=== PATIENT | female | born 1955 | race Caucasian/White ===

== ENCOUNTER 2025-06-23 22:10 | Observation (INO) | payer OTHER, SELFPAY ==
[2025-06-23] VITALS (7 sets, daily range): BP systolic 168–215; BP diastolic 86–133; BMI 25.1
[2025-06-23] MEDS: LOPRESSOR 25 MG PO (17:46)
[2025-06-23] MEDS: ROXICODONE 5 MG PO (17:46)
--- NOTE | 2025-06-23 17:57 | ED.GENMED ---
History of Present Illness
General
Chief Complaint: Blood Pressure Problem
Source: patient
Exam Limitations: none
Time Seen by Provider: 06/23/25 17:02
Nursing documentation reviewed up to this point in time: agreed with
History of Present Illness
History of Present Illness:
70-year-old female sent from the outpatient center today she was have a total hip replacement Dr. Doran blood pressure is elevated surgery was canceled she has pain in her hip no chest pain no shortness of breath no fever or chills, no headache no
history of hypertension followed at the [facility]
Past History
Past History
ED Past Medical History: Other (Osteoarthritis); Negative HTN
Social History
Tobacco: Former smoker
Alcohol: None
Drug: None
Personal:
Living: with family
Phy Exam
Physical Exam
Physical Exam:
Physical Exam
General: no apparent distress, not acutely ill
Neck: No jaundice
Heart: Regular
Lungs: no acute respiratory distress. clear bilaterally
Abdomen: Not tender
Neuro: alert and oriented. no focal neurological deficits
Skin: no rash
Psychiatric: well kept. interactive and cooperative
Extremities: Mild pain with range of motion of the right
Course
Orders/Labs/Results
Orders:
Orders
06/23/25 15:19
EKG [Electrocardiogram (*1)] Urgent
Reason for Study: Hypertension, Benign
06/23/25 15:20
EKG- Treatment ONCE
06/23/25 17:27
Metoprolol [Lopressor] 25 mg PO NOW STA
Oxycodone [Roxicodone] 5 mg PO NOW STA
06/23/25 17:43
Basic Metabolic Panel Urgent
Complete Blood Count/With Diff Urgent
06/23/25 19:13
HydrALAZINE [Apresoline] 10 mg IV NOW STA
06/23/25 20:18
Troponin I Urgent
Diazepam [Valium] 5 mg PO NOW STA
Abnormal Lab Results
06/23/25
17:43
MCH 26.8 L pg
(27.0-31.0)
MCHC 31.7 L g/dL
(33.0-37.0)
Sodium 133 L mmol/L
(135-145)
Carbon Dioxide 31 H mmol/L
(22-30)
BUN 18 H mg/dl
(7-17)
Glucose 101 H mg/dl
(70-99)
Calcium 10.4 H mg/dl
(8.4-10.2)
06/23/25 17:43
06/23/25 17:43
Vital Signs
Initial and Last Documented VS:
Initial Vital Signs
Temp Pulse Resp BP Pulse Ox
98.0 F 89 18 212/133 98
06/23/25 15:15 06/23/25 15:15 06/23/25 15:15 06/23/25 15:15 06/23/25 15:15
Last Documented Vital Signs
Temp Pulse Resp BP Pulse Ox
98.0 F 88 20 205/90 99
06/23/25 15:15 06/23/25 19:59 06/23/25 19:59 06/23/25 19:59 06/23/25 19:59
MDM/Problems Addressed
Differential Diagnosis Includes:
Essential hypertension hypertensive urgency hypertension related to pain
MDM/Problems Addressed:
No signs of endorgan
Chronic conditions affecting care:
No history of hypertension has
*Pulse Oximetry
SaO2: 99
Oxygen Mode of Delivery: Room air
Patient hypoxic: no
*EKG
Interpreted by ED Provider?: Yes
Interpretation: normal
Comparison EKG: no comparison EKG present
Heart Rate: 78
Rate: normal
Rhythm: sinus
Ischemia: non-specific ST changes
*[employer] Interpretation
Rate: normal
Interpretation: normal
Heart Rate: 78
Rhythm: sinus
*Critical Care Note
Total Time (30-74mins, 75-104mins- exclusive of procedures): Not Applicable
Update Note
Update Note:
Update will check labs, treat her pain started on beta-george messages sent to family practice attendings, and orthopedist will try to facilitate outpatient follow-up in the office
8:20 PM patient reevaluated now she states she feels worse she has pain in her back shortness of breath pressure in her chest numbness in her arms numbness in her feet blood pressure is 180/80
ED Attending Note
-
Portions of this chart may have been created with voice recognition software.� Occasional wrong word or��sound alike� substitutions may have occurred due to the inherent limitations of voice recognition software.
Discharge Plan
Departure
Patient Disposition: Admit
Date of Disposition: 06/23/25
Time of Disposition: 20:00
Admit to: Telemetry
Presentation/result/management discussed w/ accepting MD/DO: Hospitalist
Patient with high blood pressure during this ER visit?: Yes
Condition: Good
Discharge Problem:
HBP (high blood pressure), Hypertensive urgency
Instructions: Osteoarthritis, BLOOD PRESSURE
Prescriptions:
New
oxycodone-acetaminophen [Percocet] 5-325 mg tablet
1 tab PO Q6HPRN PRN (Reason: pain) Qty: 14 0RF
metoprolol tartrate 25 mg tablet
25 mg PO BID Qty: 20 0RF
Referrals:
Keron Rico MD, Resident [Family Provider, General] - Next open appointment
Activity Restrictions/Additional Instructions:
Follow-up with your primary care provider, and with Dr. Doran your orthopedist
Interventions
Interventions:
*Risk Screen - Suicide Last Done: 06/23/25 15:15
*General Assessment Last Done: 06/23/25 15:15
*Neglect/Abuse Screening Last Done: 06/23/25 15:15
*ED COVID-19 Vaccine History Last Done: 06/23/25 15:15
*ED Influenza Vaccine History Last Done: 06/23/25 15:15
ED- Cardiac Assessment Last Done: 06/23/25 17:18
ED- Neurological Assessment Last Done: 06/23/25 17:18
ED- Pulmonary Assessment Last Done: 06/23/25 17:18
Discharge Date and Time
Print Language: GERMAN
[2025-06-23 17:58] LABS: Hematocrit 39.1 % (37.0-47.0); Hemoglobin 12.4 g/dL (12.0-16.0); Mean Corp Hgb Conc. 31.7 g/dL (33.0-37.0); Mean Corpuscular Volume 84.6 fL (81.0-99.0); Nucleated Red Blood Cells % 0 %; Platelet Count 371 10^3/uL (130-400); Red Cell Dist. Width 14.3 % (11.5-14.5)
[2025-06-23 18:17] LABS: Blood Urea Nitrogen 18 mg/dl (7-17); Calcium 10.4 mg/dl (8.4-10.2); Carbon Dioxide 31 mmol/L (22-30); Chloride 101 mmol/L (98-107); Glucose 101 mg/dl (70-99); Sodium 133 mmol/L (135-145); eGFR > 60.00
[2025-06-23] MEDS: APRESOLINE 10 MG IV (19:24)
[2025-06-23] MEDS: VALIUM 5 MG PO (20:32)
--- NOTE | 2025-06-23 20:37 | HPS.HSE ---
Family Physician
-
Family Physician: Keron Rico MD, Resident
Chief Complaint
-
hypertension
History of Present Illness
Patient is a 70-year-old female with no significant past medical history who presented to [facility] ED for evaluation of elevated blood pressure. Patient states that she presented this morning for scheduled right hip replacement, when she was found to be
hypertensive. Surgeon canceled surgery and refered patient to ED for evaluation. She complains of bilateral feet feeling tingling. She denies any headaches, blurry vision, dizziness, chest pain or shortness of breath.
Medical History
Past Medical History
Past Medical History: Reports Other
Additional Past Medical History:
osteoarthritis
Past Surgical History: Reports None
Social History
Tobacco: Former Smoker (quit summer 2024)
Alcohol: Occasional
Drug: None
Living: Alone
Employment: Retired
Family History
Family History: Not pertinent
Allergies / Home Medications
Allergies reflects when Allergies were last updated in [facility].
Home Medications with original date entered in [facility]
Allergy/Medication List:
Allergies
Allergy/AdvReac Type Severity Reaction Status Date / Time
cantaloupe Allergy Unknown Verified 06/23/25 15:20
Home Medications
No Meds [No Current Medications] 06/23/25
Review of Systems
-
History Source: Patient
Constitutional: Denies Fever or Chills
EENT: Denies Sore Throat
Respiratory: Denies Cough, Hemoptysis or Trouble Breathing
Cardiac: Denies Chest Pain, Diaphoresis, Palpitations or Syncope
Abdomen/GI: Denies Abdominal Pain, Nausea, Vomiting or Diarrhea
: Denies Dysuria, Frequency or Urgency
Musculoskeletal: Reports Joint Pain (right hip pain )
Skin: Denies Rash
Neurological: Denies Dizzy, Headache, Weakness or Numbness
Endocrine: Denies Polyuria or Polydipsia
Physical Exam
Vital Signs
Vital Signs
Temp Pulse Resp BP Pulse Ox
98.0 F 88 20 205/90 99
06/23/25 15:15 06/23/25 19:59 06/23/25 19:59 06/23/25 19:59 06/23/25 19:59
Physical Exam
General: Well Developed, Well Nourished, No Apparent Distress, Comfortable and Conversant
HEENT: NormoCephalic, Moist mucous membranes, PERRLA, Nose Appears Normal and Ears Appear Normal
Respiratory: Clear and Non Labored Respirations
Cardiac: S1/S2 and Regular Rhythm; No Murmur
GI: Soft, Non Tender, Non Distended and Normal Bowel Sounds
Musculoskeletal: No Clubbing, No Cyanosis and No Edema
Skin: Warm and IV/Catheter Site; No Rash
Neuro: Awake and AO x 3
Hematologic/Lymphatic: No Lymphadenopathy
Psych: Calm and Intact Judgment/Insight
Laboratory Results
-
06/23/25 17:43
06/23/25 17:43
Laboratory Results
Total Bilirubin Cancelled 06/23/25 17:43
AST Cancelled 06/23/25 17:43
ALT Cancelled 06/23/25 17:43
Alkaline Phosphatase Cancelled 06/23/25 17:43
Data Reviewed
-
Medical Tests (Nuc Med, Echo, EKG etc): Report Reviewed by me (EKG: NORMAL SINUS RHYTHM)
Lab Data: Labs Reviewed by me
Impression/Plan
-
IMPRESSION/PLAN:
#hypertensive urgency
EKG: NORMAL SINUS RHYTHM
- Admit to med/surg
- start lisinopril 5mg daily
#osteoarthritis
pending right hip replacement
- pain regimen with PRN Oxycodone
Code status: DNR
DVT prophylaxis: Lovenox sq
--- NOTE | 2025-06-23 20:51 | W.PN.UPDATE ---
Update Note
Progress Note Update
Patient seen in conjunction with nurse practitioner. I agree with the history and the assessment and plan.
Briefly, this is a 70-year-old with past medical history of end-stage osteoarthritis needing total hip replacement will was sent to the emergency department from clinic for elevated blood pressure.
Patient was seen at clinic today for a planned total hip replacement blood when he measured a blood pressure which was much elevated. She denied having any chest pain or shortness of breath. She denied any nausea vomiting or diaphoresis. She
denies any headache. Denies any vision changes. Denies any numbness or tingling. She denies any lower extremity swelling.
Previously she has been found to have elevated blood pressures at clinic but is not currently on any medications. She reports that she has a dry mouth and at no p.o. intake all day. Generalized reports chronic hip pain for which she takes aspirin
and Tylenol regularly. While in the emergency department she was given pain control and Valium with development of slight drowsiness and head fullness. Blood pressure did improved to 160 systolic after IV hydralazine and metoprolol
On arrival in the emergency department the blood pressure was 205/90 systolic with a pulse of 88 and she was satting 99% on room air. ECG shows a normal sinus rhythm at rate of [address] or T wave changes. No LVH. Troponin is pending.
CBC is unremarkable. Electrolytes notable for a sodium of 133, potassium is pending, and bicarb is 31 BUN and creatinine normal and glucose was 107.
Assessment and plan
Uncontrolled blood pressure without findings of endorgan damage show focal neurological symptoms. Patient is without any chest pain or shortness of breath. She has no headache. No prior treatment for uncontrolled hypertension.
- Admit to telemetry observation
- No history of diabetes, normal renal function.
- As need hydralazine for SBP greater than 180
- start low dose lisinopril in am
End-stage osteoarthritis of the hip
- Pain management with Tylenol, as needed oxycodone which has helped tremendously
- Muscle relaxants as needed
DVT prophylaxis�SCDs
CODE STATUS�full code
[2025-06-23 21:14] LABS: Troponin I < 0.012 ng/ml
[2025-06-24] MEDS: ROXICODONE 5 MG PO ×2 (00:36→07:20)
--- NOTE | 2025-06-24 06:20 | PTCARENOTE ---
06/23 @ 2230- pt received via stretcher from ED; Medsurg order. Afebrile, HR 81, BP 175/93, pox 98% room air. No c/o pain. AAOx3, steady on feet. PMH reviewed by this RN and patient. Plan of care discussed. Call [facility] within reach.
[2025-06-24 07:19] VITALS: BP 184/96
[2025-06-24] MEDS: ZESTRIL 5 MG PO (07:20)
[2025-06-24 10:57] VITALS: BP 159/80
[2025-06-24 12:05] LABS: Blood Urea Nitrogen 17 mg/dl (7-17); Calcium 9.9 mg/dl (8.4-10.2); Carbon Dioxide 26 mmol/L (22-30); Chloride 98 mmol/L (98-107); Estimated Creatinine Clearance 46 ml/min; Glucose 108 mg/dl (70-99); Potassium 4.1 mmol/L (3.5-5.1); Sodium 131 mmol/L (135-145); eGFR > 60.00
[2025-06-24 14:23] VITALS: BP 179/97
--- NOTE | 2025-06-24 14:46 | CM ---
IA completed. JUNE provided and placed on chart. Independent in ADLs and IADLs. Pt lives alone in a 2 story house but only uses the 1st floor. Has 1 step at the entrance to the home.DME: Rolling walker which she uses, [facility] jignesh not in use.No hx of HH,
O2, SNF. No insecurities identified. Confirmed PXP, Rx, insurance an drug coverage.
PCP: Keron Rico
RX: [facility]
Plan: Discharged to home with no needs. [id number] will drive patient home.
--- NOTE | 2025-06-24 16:25 | W.PN.HOSP.TC ---
Addendum entered and electronically signed by Tyrone Ellison MD 06/24/25 21:14:
Attending Addendum:
I saw and evaluated the patient. I reviewed the resident�s note and agree with findings and plan as documented in the resident�s note. Sub: Feels nauseous after oxycodone. Landing dizzy last pm when BP dropped. Currently feels pain in RLE chronic. Full
12 point ROS reviewed and negative except as documented Exam: Vitals reviewed in chart GEN-NAD heart RRR lungs clear abd soft LE no edema
Plan:
#Hypertensive urgency
- EKG: personally reviewed NORMAL SINUS RHYTHM
- cont lisinopril 5mg daily
- resolved need OP follow UP
- ECHO as OP
# Severe Right Hip Osteoarthritis
- pending elective right hip replacement
- pain regimen with PRN Oxycodone
# Hyponatremia
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
- repeat BMP in one week
Dispo DC HOME
Time spent coordinating care, DC planning, review of DC plan of care with resident, transition of care, review of records, med rec/scripts sent electronically, consults, notes, d/w consultants, nursing, PCP updated, and CM� 31 mins >50% of this time
was devoted to counseling and coordination of care
Original Note:
Today's Communication/Plan
-
Patients hypertensive urgency was treated here at the hospital
Patients lab work was came back trending in the right direction
Patient will be given a referral to follow up at the wellness clinic
Her medication is reviewed and ordered.
Daughter in law will drive patient home. `
Patient will be discharged today.
Assessment / Plan
Assessment / Plan
#Hypertensive Urgency
Patient was prescribed Furosemide 20 mg PO BID was ordered for the patient as a home medication.
#End stage osteoarthritis of the hip
Pain management with one week prescription for Oxycodone 5 mg.
Anticipated Discharge: Today
Subjective/Interval History
-
Date of Service: June 24, 2025
Overnight Events: Patient states that they are doing well. She denies any fever or chills, but does say shes currently feeling very nauseous and wants to vomit. Patient blames her nauseousness on on taking her newly dose lisinopril but she also took
an oxycodone medication around that same time.
Objective Data
-
Labs:
Laboratory Results
06/24/25
11:29
Sodium 131 L
Potassium 4.1
Chloride 98
Carbon Dioxide 26
BUN 17
Creatinine 0.8
Glucose 108 H
Calcium 9.9
Vital Signs:
Vital Signs
Temp Pulse Resp BP Pulse Ox
97.6 F 99 16 179/97 98
06/24/25 14:23 06/24/25 14:23 06/24/25 14:23 06/24/25 14:23 06/24/25 14:23
I&O
06/23/25 06/24/25 06/25/25
06:59 06:59 06:59
Intake Total 0 / 0
Balance 0 / 0
Review of Systems
-
History Source: Patient
All other systems: Reviewed and negative
Abdomen/GI: Reports Nausea and Vomiting
Physical Exam
-
General: Well Developed, Well Nourished and No Apparent Distress
HEENT: Normocephalic, Atraumatic and Moist Mucous Membranes
Respiratory: Clear to Auscultation
Cardiac: Regular Rhythm, S1/S2 and Irregular Rhythm
Breast: Deferred by me
GI: Soft, Nontender and Nondistended
Musculoskeletal: No Clubbing, No Cyanosis and No Edema
Skin: Warm
Neuro: AO x 3
Data Reviewed
-
Medical Tests (Nuc Med, Echo etc): Report Reviewed by me and Discussed with Physician
Labs: Labs Reviewed by me and Discussed with Physician
--- NOTE | 2025-06-24 17:13 | W.DCSUMMARY ---
Addendum entered and electronically signed by Tyrone Ellison MD 06/24/25 21:14:
Read, reviewed, and agree. See same day progress note for additional details.
Mitch Ellison MD
Original Note:
Documented by User: Jamaal Joshi MD, Resident 06/24/25 17:46
Discharge Summary
Discharge Data
Date of Admission: 06/23/25
Date of Discharge: 06/24/25
-
Pending Results: No
Hospital Course
70-year-old female with past medical history of end-stage osteoarthritis needing total hip replacement will was sent to the emergency department from the residency wellness clinic for elevated blood pressure. Patient was seen at clinic today for a
planned total hip replacement presurgery work up, but then she measured a very high blood pressure in their office so they sent her over to ED. She denied having any chest pain, shortness of breath, nausea vomiting or diaphoresis. She denies any
headache, any vision changes or any numbness, tingling or any lower extremity swelling. Previously she has been found to have elevated blood pressures at clinic but is not currently on any medications. She reports that she has a dry mouth and
remained NPO all day. She has had generalized chronic hip pain for which she takes aspirin and Tylenol regularly. While in the emergency department she was given pain control and Valium with development of slight drowsiness and head fullness. Blood
pressure did improve to 160 systolic after IV hydralazine and metoprolol. On arrival in the emergency department her blood pressure was 205/90 systolic with a pulse of 88 and she was satting 99% on room air. ECG shows a normal sinus rhythm at rate
of [address] or T wave changes. No LVH. Troponin were WNL. CBC is unremarkable. Electrolytes notable for a sodium of 131, potassium of 4.1, and bicarb is 31 BUN and creatinine
normal and glucose was 108. Patient was in the ED, she was given pain control and Valium with development of slight drowsiness and head fullness. Blood pressure did improved to 160 systolic after IV hydralazine and metoprolol. She was admitted to
telemetry floor for observation and started on a low-dose of 5 mg lisinopril per oral. Patient was administered lisinopril approximately around the same time as she had her oxycodone. Shortly after she felt a wave of nausea felt like vomiting
(which is probably due to the coadministration of these 2 medications so close together. After stabilizing patient blood pressure normalized and she ready is for discharge. She is being sent home with Lisinopril 5 mg to help manage her blood
pressure and Oxycodone 5 mg to help manage her pain.
Patient is ready for discharge.
Discharge Plan
-
Patient Disposition: Home (Routine Discharge)
Discharge Diagnosis/Procedures: hypertensive urgency, end-stage osteoarthritis of the hip
Condition: Fair
Diet: No restrictions
Activity: No restrictions
Driving Restrictions: As prior to admission
Bathing Restrictions: None
Others Tests: Blood Pressure Check at PCP office in one week follow up
Instructions: BLOOD PRESSURE
Referrals:
Keron Rico MD, Resident [Family Provider, General] - in one week
Referral Note: Please check for secondary causes of hypertension.
Additional Discharge Medication Instructions: Repeat BMP in one week when you follow up with PCP
Prescriptions:
New
lisinopril 5 mg Tablet
5 mg PO DAILY Qty: 30 0RF
oxycodone 5 mg Tablet
5 mg PO PRN PRN (Reason: moderate pain) Qty: 7 0RF
Discharge Orders:
Discharge Patient (As Directed); Ordered 06/24/25
Ordered By: Jamaal Joshi
Discharge Date and Time
Discharge Date/Time: 06/24/25 15:42
Print Language: TELUGU

Documented by User: Tyrone Ellison MD 06/24/25 21:09
Discharge Summary
Discharge Data
Date of Admission: 06/23/25
Date of Discharge: 06/24/25
Discharge Plan
-
Patient Disposition: Home (Routine Discharge)
Discharge Diagnosis/Procedures: hypertensive urgency, end-stage osteoarthritis of the hip
Condition: Fair
Diet: No restrictions
Activity: No restrictions
Driving Restrictions: As prior to admission
Bathing Restrictions: None
Others Tests: Blood Pressure Check at PCP office in one week follow up
Instructions: BLOOD PRESSURE
Referrals:
Keron Rico MD, Resident [Family Provider, General] - in one week
Referral Note: Please check for secondary causes of hypertension.
Additional Discharge Medication Instructions: Repeat BMP in one week when you follow up with PCP
Prescriptions:
New
lisinopril 5 mg Tablet
5 mg PO DAILY Qty: 30 0RF
oxycodone 5 mg Tablet
5 mg PO PRN PRN (Reason: moderate pain) Qty: 7 0RF
Discharge Orders:
Discharge Patient (As Directed); Ordered 06/24/25
Ordered By: Jamaal Joshi
Discharge Date and Time
Discharge Date/Time: 06/24/25 15:42
Print Language: TELUGU
== END 2025-06-24 15:42 | disposition home or self-care (01) ==
LOC: 4 EAST ACU 22:10
PROVIDERS: ADMITTING PHYSICIAN Internal Medicine; ATTENDING PHYSICIAN Family Medicine; EMERGENCY PHYSICIAN Emergency Medicine
DX: I16.0 Hypertensive urgency (principal); M16.11 Unilateral primary osteoarthritis, right hip; I10 Essential (primary) hypertension; R07.89 Other chest pain; R06.02 Shortness of breath; E87.1 Hypo-osmolality and hyponatremia; G89.29 Other chronic pain; R68.2 Dry mouth, unspecified; R20.0 Anesthesia of skin; R20.2 Paresthesia of skin; Z53.9 Procedure and treatment not carried out, unspecified reason; Z87.891 Personal history of nicotine dependence; Z91.018 Allergy to other foods; Z79.899 Other long term (current) drug therapy; Z66 Do not resuscitate
CPT/HCPCS: 80048; 84484; 85025; 93005; 96374; 99285; G0378

== ENCOUNTER → 2025-07-22 13:22 | Outpatient (REF) | payer OTHER, SELFPAY | LOC: RAD 13:22 | PROVIDERS: ATTENDING PHYSICIAN Student in an Organized Health Care Education/Training Program | DX: I16.0 Hypertensive urgency (principal); R09.89 Other specified symptoms and signs involving the circulatory and respiratory systems | CPT/HCPCS: 93975 ==